=== PATIENT | female | born 1985 | race Caucasian/White ===

== ENCOUNTER 2019-06-05 14:17 | Emergency (ER) | payer BC ==
--- NOTE | 2019-06-05 15:08 | EDM.PDOC ---
ED HPI GENERAL MEDICAL PROBLEM - General Chief Complaint: Lower Extremity Injury/Pain Stated Complaint: INJURED LEFT FOOT Time Seen by Provider: 06/05/19 14:44 Source of Information: Reports: Patient History Limitations: Reports: No Limitations - History of Present Illness INITIAL COMMENTS - FREE TEXT/NARRATIVE: states she stepped down and heard a crack with her left food; has pain laterally No obvious deformity; no swelling or bruising. Hurts to bear weight. Onset: Today Location: Reports: Lower Extremity, Left Quality: Reports: Ache, Throbbing Severity: Mild Improves with: Reports: None Worsens with: Reports: None - Related Data Allergies Allergy/AdvReac Type Severity Reaction Status Date / Time No Known Allergies Allergy Verified 06/05/19 14:48 Home Meds: Home Meds Lisdexamfetamine [Vyvanse] 06/05/19 [History] Topiramate 06/05/19 [History] metFORMIN HCl [Metformin HCl ER] 06/05/19 [History] Past Medical History - Past Surgical History HEENT Surgical History: Reports: Eye Surgery GI Surgical History: Reports: Cholecystectomy Female Surgical History: Reports: Section Social & Family History - Tobacco Use Smoking Status *Q: Never Smoker Review of Systems - Review of Systems Review Of Systems: ROS reveals no pertinent complaints other than HPI. ED EXAM, GENERAL - Physical Exam Exam: See Below Exam Limited By: No Limitations General Appearance: Alert, WD/WN, No Apparent Distress Head: Atraumatic, Normocephalic Neck: Normal Inspection, Supple, Full Range of Motion Respiratory/Chest: No Respiratory Distress Peripheral Pulses: 4+: Posterior Tibial (L), Posterior Tibial (R), Dorsalis Pedis (L), Dorsalis Pedis (R) Back Exam: Normal Inspection Extremities: Normal Inspection, Other (left lateral foot pain, no redness, ecchymosis or deformtiy; +cms) Neurological: Alert, Oriented, CN II-XII Intact, Normal Cognition Psychiatric: Normal Affect, Normal Mood Skin Exam: Warm, Dry Course - Vital Signs Last Recorded V/S: Last Vital Signs Temp 99.5 F 06/05/19 14:53 Pulse 109 H 06/05/19 14:53 Resp 17 06/05/19 14:53 BP 143/91 H 06/05/19 14:53 Pulse Ox 94 L 06/05/19 14:53 - Orders/Labs/Meds Orders: Active Orders 24 hr Category Date Time Status Specialty Boots [OM.PC] Routine Oth 06/05/19 16:51 Ordered - Re-Assessments/Exams Free Text/Narrative Re-Assessment/Exam: 06/05/19 17:25 review of xray is negative for acute findings. Departure - Departure Time of Disposition: 16:52 Disposition: Home, Self-Care 01 Condition: Good Clinical Impression: Left foot pain - Discharge Information *PRESCRIPTION DRUG MONITORING PROGRAM REVIEWED*: Not Applicable *COPY OF PRESCRIPTION DRUG MONITORING REPORT IN PATIENT ELENA: Not Applicable Instructions: Foot Pain Referrals: PCP,None [Primary Care Provider] - Forms: ED Department Discharge Additional Instructions: Ice, elevate Ibuprofen/tylenol for pain IF pain persists after a week, follow up with your doctor Call with questions. - Problem List & Annotations (1) Left foot pain SNOMED Code(s): 17507939 Code(s): M79.672 - PAIN IN LEFT FOOT Status: Acute - My Orders Last 24 Hours: My Active Orders 06/05/19 16:51 Specialty Boots [OM.PC] Routine - Assessment/Plan Last 24 Hours: My Active Orders 06/05/19 16:51 Specialty Boots [OM.PC] Routine
--- NOTE | 2019-06-05 17:18 | CRLCR ---
Indication: Fell, heard a crack Technique: Two views left foot Comparison: None Findings: Bones: Alignment is normal. No fractures or bone lesions. Joint spaces: Unremarkable. Soft tissues: Unremarkable. Impression: Negative. Dictated by Lin Ramos MD @ Jun 05 2019 5:17PM Signed by Dr. Lin Ramos @ Jun 05 2019 5:18PM
== END 2019-06-05 17:06 | disposition home or self-care (01) ==
LOC: JP.ED 14:17
DX: M79.672 Pain in left foot (principal); Z79.899 Other long term (current) drug therapy; Z90.49 Acquired absence of other specified parts of digestive tract
CPT/HCPCS: 73620-LT; 99283-25